=== PATIENT | male | born 1965 | race Caucasian/White ===

== ENCOUNTER 2025-03-17 16:23 | Inpatient (IN) | payer OTHER ==
[~2025-03-17] VITALS: Ht 170.2 cm; Wt 133.8 kg
[2025-03-17 17:22] LABS: HEMATOCRIT. 47.1 % (42.0-52.0); HEMOGLOBIN. 16.1 g/dL (14.0-18.0); MEAN PLATELET VOLUME 8.9 fl (7.4-10.4); PLATELET 157 x1000/uL (130-400); RED BLOOD CELL COUNT 5.16 mill/uL (4.7-6.1); RED CELL DISTRIBUTION WIDTH 14.2 % (11.6-14.6)
[2025-03-17 17:26] LABS: CLARITY URINE CLEAR (CLEAR); COLOR URINE YELLOW (YELLOW); GLUCOSE URINE NEGATIVE (NEGATIVE); KETONES URINE NEGATIVE (NEGATIVE); LEUKOCYTE ESTERASE URINE TRACE (NEGATIVE); NITRITE URINE NEGATIVE (NEGATIVE); OCCULT BLOOD URINE 2+ (NEGATIVE); PH URINE 5.0 (4.5-8.0); PROTEIN URINE NEGATIVE (NEGATIVE); SPECIFIC GRAVITY URINE 1.017 (1.005-1.030); UROBILINOGEN URINE 0.2 E.U./dL (0.2-1.0)
[2025-03-17] MEDS: SODIUM CHLORIDE 0.9% 1,000 ML IV ONE ×2 (17:27)
[2025-03-17 17:33] LABS: INR 1.1
[2025-03-17 17:34] LABS: LYMPHOCYTES % MANUAL 6.0 % (20.0-50.0); MONOCYTES % MANUAL 3.0 % (2.0-8.0); NEUTROPHILS % MANUAL 91.0 % (45.0-75.0); PLATELET ESTIMATE NORMAL
[2025-03-17] MEDS: CEFTRIAXONE 1GM/50ML 50 ML IV ONE (17:34)
[2025-03-17 17:37] LABS: CREATININE 1.0 mg/dL (0.6-1.3); UREA NITROGEN BLOOD 13 mg/dL (9-23)
[2025-03-17 17:38] LABS: BACTERIA URINE TRACE; SQUAMOUS EPITHELIAL CELL URINE RARE /lpf (RARE/1+)
[2025-03-17 17:39] LABS: ASPARTATE AMINOTRANSFERASE 18 IU/L (<34); BILIRUBIN DIRECT 0.3 mg/dL (<=3.0); BILIRUBIN TOTAL 0.8 mg/dL (0.1-1.0)
[2025-03-17 17:40] LABS: PROTEIN TOTAL 7.4 g/dL (6.0-8.3)
[2025-03-17] MEDS: IPRATROPIUM/ALBUTEROL 0.5-3(2.5)MG/3ML NEB HHN ONE (17:56)
[2025-03-17 18:00] VITALS: PULSE 114; RESP 25; O2SAT 98
[2025-03-17] MEDS: AZITHROMYCIN 500MG/250ML 250 ML IV ONE (18:00)
[2025-03-17 20:00] VITALS: BP 132/86; PULSE 107; RESP 20; TEMP 36.7; O2SAT 97
[2025-03-17 20:30] VITALS: BP 132/86; PULSE 107; RESP 20; TEMP 36.696
[2025-03-17] MEDS ORDERED: IOHEXOL-350 100 ML BOTTLE ONE (21:39)
[2025-03-17] MEDS ORDERED: ONDANSETRON HCL 4MG/2ML INJ IV PRN (22:00)
[2025-03-17] MEDS ORDERED: IPRATROPIUM/ALBUTEROL 0.5-3(2.5)MG/3ML NEB HHN PRN (22:00)
[2025-03-17] MEDS ORDERED: ACETAMINOPHEN 325MG TABLET PO PRN ×2 (22:00)
[2025-03-17] MEDS ORDERED: CLONIDINE 0.1MG TABLET PO PRN (22:00)
[2025-03-17] MEDS: FUROSEMIDE 40MG/4ML VIAL IV SCH (22:37)
[2025-03-17] MEDS: PANTOPRAZOLE SODIUM 40 MG/VIAL IV SCH (22:37)
[2025-03-17] MEDS: ENOXAPARIN 40MG/0.4ML SYR SUBCUT SCH (22:37)
[2025-03-17] MEDS: POTASSIUM CHLORIDE 20MEQ TABLET SR PO SCH (22:38)
[2025-03-17 23:25] LABS: LDL CHOLESTEROL 87 mg/dL (5-100); TRIGLYCERIDE 56 mg/dL (0-150)
[2025-03-17 23:28] LABS: TROPONIN I HIGH SENSITIVITY 26 ng/L (3.0-53)
[2025-03-17 23:32] LABS: T4 FREE 1.23 ng/dL (0.89-1.76)
[2025-03-18] VITALS (12 sets, daily range): BP systolic 113–142; BP diastolic 62–70; PULSE 77–111; RESP 16–30; TEMP 36.4–37.6; O2SAT 94–99
[2025-03-18 00:51] LABS: *AMPHETAMINES SCREEN URINE NEGATIVE (NEGATIVE); *BARBITURATES SCREEN URINE NEGATIVE (NEGATIVE); *BENZODIAZEPINES SCREEN URINE NEGATIVE (NEGATIVE); *COCAINE SCREEN URINE NEGATIVE (NEGATIVE); METHADONE URINE SCREEN NEGATIVE (NEGATIVE); OPIATES URINE SCREEN NEGATIVE (NEGATIVE); PHENCYCLIDINE URINE SCREEN NEGATIVE (NEGATIVE)
[2025-03-18 00:52] LABS: CANNABINOID URINE SCREEN NEGATIVE (NEGATIVE); ECSTASY MDMA SCREEN URINE NEGATIVE (NEGATIVE)
[2025-03-18 02:50] LABS: INFLUENZA TYPE A Presumptive Negative (Pres. Neg.); INFLUENZA TYPE B Presumptive Negative (Pres. Neg.)
[2025-03-18 02:51] LABS: RESPIRATORY SYNCYTIAL VIRUS Not Detected (Not Detectd)
[2025-03-18] MEDS: IPRATROPIUM/ALBUTEROL 0.5-3(2.5)MG/3ML NEB HHN SCH (03:39)
[2025-03-18 06:51] LABS: TROPONIN I HIGH SENSITIVITY 34 ng/L (3.0-53)
[2025-03-18 06:52] LABS: CREATININE 1.1 mg/dL (0.6-1.3); TRIGLYCERIDE 52 mg/dL (0-150); UREA NITROGEN BLOOD 12 mg/dL (9-23)
[2025-03-18 06:53] LABS: LDL CHOLESTEROL 79 mg/dL (5-100)
[2025-03-18 06:56] LABS: T4 FREE 1.20 ng/dL (0.89-1.76)
[2025-03-18 07:08] LABS: HEMATOCRIT. 44.0 % (42.0-52.0); HEMOGLOBIN. 15.4 g/dL (14.0-18.0); MEAN PLATELET VOLUME 9.0 fl (7.4-10.4); PLATELET 126 x1000/uL (130-400); RED BLOOD CELL COUNT 4.81 mill/uL (4.7-6.1); RED CELL DISTRIBUTION WIDTH 14.2 % (11.6-14.6)
[2025-03-18] MEDS: PREDNISONE 20MG TABLET PO SCH (08:35)
[2025-03-18] MEDS: KCL 20MEQ/100ML PREMIX 100 ML IV SCH (08:36)
[2025-03-18] MEDS: POTASSIUM CHLORIDE 20MEQ TABLET SR PO SCH (09:59)
[2025-03-18] MEDS: POTASSIUM CHLORIDE 20MEQ/PACKET PO SCH (11:33)
[2025-03-18 11:48] LABS: LYMPHOCYTES % MANUAL 9.0 % (20.0-50.0); MONOCYTES % MANUAL 4.0 % (2.0-8.0); NEUTROPHILS % MANUAL 87.0 % (45.0-75.0); PLATELET ESTIMATE SLIGHTLY DECREASED
[2025-03-18] MEDS: AZITHROMYCIN 500 MG TABLET PO SCH (17:13)
[2025-03-18] MEDS: CEFTRIAXONE 1GM/50ML 50 ML IV SCH (17:13)
[2025-03-19] VITALS (8 sets, daily range): BP systolic 111–139; BP diastolic 64–80; PULSE 73–95; RESP 14–20; TEMP 36.7–37; O2SAT 95–97
[2025-03-20] VITALS (7 sets, daily range): BP systolic 102–118; BP diastolic 62–76; PULSE 60–86; RESP 14–20; TEMP 36.2–37; O2SAT 95–98
== END 2025-03-20 17:00 | disposition short-term general hospital (02) | DRG 189 ==
LOC: ER 16:23 → 8WST 19:05 → ENRESERV 19:55
PROVIDERS: ADMIT Internal Medicine; ATTEND Internal Medicine
PROC: 5A09357 Assistance with Respiratory Ventilation, Less than 24 Consecutive Hours, Continuous Positive Airway Pressure (ICD-10-PCS; principal; 2025-03-18)
DX: J96.01 Acute respiratory failure with hypoxia (principal); J18.9 Pneumonia, unspecified organism; E66.2 Morbid (severe) obesity with alveolar hypoventilation; R65.10 Systemic inflammatory response syndrome (SIRS) of non-infectious origin without acute organ dysfunction; I11.0 Hypertensive heart disease with heart failure; E87.6 Hypokalemia; I49.3 Ventricular premature depolarization; Z20.822 Contact with and (suspected) exposure to COVID-19; Z79.899 Other long term (current) drug therapy
CPT/HCPCS: 36415; 71045; 71275; 80048; 80061; 80076; 80305; 81003; 82550; 83605; 83735; 83880; 84132; 84145; 84439; 84443; 84481; 84484; 85025; 85379; 87070; 87077; 87186; 87420; 87426; 87804; 93005; 93970; 94070; 94640; 94660; 94664; 99291; J0456; J0696; J1650; J1938; J2470; J3480; J7030; J7512; Q9967